=== PATIENT | female | born 2000 | race African-American/Black ===

== ENCOUNTER 2024-09-19 20:12 | Emergency (ER) | payer BC ==
[~2024-09-19] VITALS: Ht 170.2 cm; Wt 105.0 kg
[2024-09-19 20:26] VITALS: O2SAT 100
[2024-09-19 21:04] VITALS: TEMP 36.6; O2SAT 100
[2024-09-19] MEDS ORDERED: KETOROLAC 15MG/ML VIAL IM ONE (23:00)
[2024-09-19 23:47] VITALS: BP 124/87; PULSE 82; RESP 18
[2024-09-19] MEDS: LIDOCAINE 5% PATCH TOP SCH (23:47)
[2024-09-19] MEDS: KETOROLAC 15MG/ML VIAL IM NR (23:47)
[2024-09-20] MEDS ORDERED: NAPR-1176 MT (00:55)
[2024-09-20] MEDS ORDERED: LIDO700A15 TP (00:55)
== END 2024-09-20 01:33 | disposition home or self-care (01) ==
LOC: ER 20:12
DX: R07.89 Other chest pain (principal); M79.18 Myalgia, other site; Z79.1 Long term (current) use of non-steroidal anti-inflammatories (NSAID); Z90.49 Acquired absence of other specified parts of digestive tract; V89.2XXA Person injured in unspecified motor-vehicle accident, traffic, initial encounter; Y93.89 Activity, other specified; Y92.89 Other specified places as the place of occurrence of the external cause; Y99.8 Other external cause status
CPT/HCPCS: 81025; 71045; 73030; 96372; 99284; J1885; Z7610 ×3; A4606